=== PATIENT | female | born 1955 | race Caucasian/White ===

== ENCOUNTER → 2016-07-20 | Outpatient (CLI) | payer OTHER | END | disposition home or self-care (01) | LOC: RAD.S 07-12 11:10 | DX: Z12.31 Encounter for screening mammogram for malignant neoplasm of breast (principal); Z13.820 Encounter for screening for osteoporosis; Z78.0 Asymptomatic menopausal state; R92.1 Mammographic calcification found on diagnostic imaging of breast; M85.88 Other specified disorders of bone density and structure, other site ==